=== PATIENT | female | born 1980 | race Caucasian/White ===

== ENCOUNTER 2018-07-19 17:17 | Emergency (ER) | payer MEDICAID ==
[2018-07-19] MEDS ORDERED: CLINDAMYCIN HCL 150 MG CAPSULE PO ONE (18:49)
[2018-07-19] MEDS ORDERED: OXYCODONE-ACETAMINOPHEN 5-325 MG TABLET PO ONE (18:49)
[2018-07-19] MEDS ORDERED: LIDOCAINE 1%/EPINEPHRINE INJ 20 ML VIAL INJ ONE (18:50)
--- NOTE | 2018-07-19 18:55 | ER Document Report ---
ED General - General Chief Complaint: Toothache Stated Complaint: POSSIBLE ABSCESS Time Seen by Provider: 07/19/18 18:44 TRAVEL OUTSIDE OF THE [place] IN LAST 30 DAYS: No - HPI Patient complains to provider of: Right lower jaw pain. Facial swelling. Onset: Other - Pain for a week, swelling this morning Onset/Duration: Sudden Quality of pain: No pain Severity: Severe Pain Level: 4 Associated symptoms: denies: Chills, Fever Exacerbated by: Other - Eating/chewing Relieved by: Denies Similar symptoms previously: No Recently seen / treated by doctor: No Notes: 37-year-old female with right jaw swelling. Has bad pain in the right lower jaw for a week. Swelling was noticed this morning. No fevers or shaking chills. 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 veins, REPORTS BILAT LEG DVT., Hx Hypercholesterolemia, Hx Hypertension Pulmonary Medical History: Reports: Hx Bronchitis, Hx Pneumonia Renal/ Medical History: Denies: Hx Peritoneal Dialysis GI Medical History: Reports: Hx Gastroesophageal Reflux Disease Skin Medical History: Reports Hx MRSA - 2 bites on buttocks now that drained, getting better Psychiatric Medical History: Reports: Hx Attention Deficit Hyperactivity Disorder, Hx Bipolar Disorder, Hx Depression Infectious Medical History: Reports: Hx MRSA Past Surgical History: Reports: Hx Abdominal Surgery - gastric bypass, Hx Section - x2, Hx Cholecystectomy, Hx Hysterectomy, Hx Orthopedic Surgery - R knee, 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 No chills. EENT: No eye redness. No eye pain. No ear pain. No sore throat. Positive tooth pain. Positive facial swelling right lower jaw Cardiovascular: No chest pain. No palpitations. Respiratory: No cough. No shortness of breath. No respiratory distress. Gastrointestinal: No abdominal pain. No nausea, vomiting, or diarrhea. Genitourinary: Atraumatic. No lesions. No pain. No discharge. Musculoskeletal: Atraumatic. No swelling. No deformities. Skin: No rash or lesions. Lymphatic: No swollen lymph nodes. Neurologic: No headache. No syncope. Psychiatric: No suicidal or homicidal ideation. Physical Exam - Vital signs Vitals: Temp Pulse Resp BP Pulse Ox 98.0 F 96 16 153/98 H 100 07/19/18 17:40 07/19/18 17:40 07/19/18 17:40 07/19/18 17:40 07/19/18 17:40 - Notes Notes: General: Well-developed, well-nourished. In no acute distress. Non-toxic appe aring. Cardiac: Well-perfused. Regular rate and rhythm. No murmurs, rubs, or gallops. Pulmonary: No respiratory distress. No cyanosis. Bilateral lung fiels are clear to auscultation. Abdominal: Non-distended. Non-rigid. Bowels sounds are present in all four quadrants. No guarding or rebound. HEENT: Head is atraumatic. Conjunctivae not reddened. No tearing. PERRL. EOMI. Orbits atraumatic. No periorbital swelling or erythema. Oropharynx is without erythema, swelling, or exudates. Teeth are in fair repair. There appears to be an abscess adjacent to teeth 28 and 29. No trismus. No drooling. No submandibular or sublingual swelling. No dysphonia dyspnea or dysphagia Neck: Supple. No adenopathy. No meningismus. Dermatologic: Warm with good turgor. No rash. Atraumatic. Chest: Atraumatic. No chest wall tenderness to palpation. Musculoskeletal: Moves all extremities well. No range of motion deficits. no muscular or joint tenderness. No paraspinal muscle tenderness. no midline spinal tenderness or step-off. Genitourinary: Examination deferred Neurologic: No gross neurologic deficits. Psychiatric: Normal mood. Course - Re-evaluation Re-evalutation: 07/19/18 18:54 I will go ahead and give the patient some oral antibiotics and a hefty dose of Percocet before we try to incise and drain a potential abscess. - Vital Signs Vital signs: Temp Pulse Resp BP Pulse Ox 98.0 F 96 16 153/98 H 100 07/19/18 17:40 07/19/18 17:40 07/19/18 17:40 07/19/18 17:40 07/19/18 17:40 Procedures - Incision and Drainage Right Lower jaw Type: Simple Anesthetic type: 1% Lidocaine mL's of anesthetic: 1 Blade size: 11 Incision Method: Incision made by scalpel Amount/type of drainage: 1-2 cc purulent/bloody Notes: 07/19/18 20:17 Patient tolerated the procedure well Discharge - Discharge Clinical Impression: Dental abscess Condition: Good Disposition: HOME, SELF-CARE Instructions: Clindamycin ([facility]), Dental Infection or Abscess ([facility]) Prescriptions: Clindamycin HCl 300 mg PO QID #40 capsule Hydrocodone/Acetaminophen [[place] 7.5-325 Tablet] 1 each PO Q6H #8 tablet Referrals: [facility] [Provider Group] - Follow up as needed
[2018-07-19 20:41] VITALS: BP 148/95
== END 2018-07-19 20:41 | disposition home or self-care (01) ==
LOC: ER 17:17
DX: K04.7 Periapical abscess without sinus (principal); F17.200 Nicotine dependence, unspecified, uncomplicated; I10 Essential (primary) hypertension; Z88.2 Allergy status to sulfonamides; Z88.5 Allergy status to narcotic agent; Z98.84 Bariatric surgery status
CPT/HCPCS: 99282; 40800; J3490